=== PATIENT | male | born 1970 | race Caucasian/White ===

== ENCOUNTER → 2016-11-19 | Outpatient (CLI) | payer MEDICARE, OTHER, MEDICAID ==
[~2016-11-19] MED LIST: BUSP10TA23 PO; FLUO-191 PO; GABA-531 PO; MELA3 PO; VITA400C73 PO
== END | disposition home or self-care (01) ==
LOC: RADPV 07:59
PROVIDERS: ATTEND Family Medicine
DX: R76.11 Nonspecific reaction to tuberculin skin test without active tuberculosis (principal)

== ENCOUNTER 2018-02-23 06:12 | Emergency (ER) | payer MEDICARE, OTHER, MEDICAID ==
[~2018-02-23] VITALS: Ht 170.2 cm; Wt 68.1 kg
[~2018-02-23 06:12] MED LIST changes: -MELA3 PO; +MELA3TAB66 PO
[2018-02-23] MEDS ORDERED: BUSP30TA2 PO (06:22)
[2018-02-23] MEDS ORDERED: LORA0.5T2 PO (06:22)
[2018-02-23] MEDS ORDERED: MEMA10TA20 PO (06:22)
[2018-02-23] MEDS ORDERED: LOVA20TA3 PO (06:22)
[2018-02-23] MEDS ORDERED: FLUO-126 PO (06:22)
[2018-02-23] MEDS ORDERED: PERP4TAB10 PO (06:22)
[2018-02-23 06:59] LABS: BASOPHILS % (AUTO) 3.1 % (0.0-2.0); EOSINOPHILS % (AUTO) 2.1 % (1.0-6.0); HEMATOCRIT 43.5 % (41-53); HEMOGLOBIN 15.1 g/dL (13.5-17.5); LYMPHOCYTES # (AUTO) 1.4 K/uL (1.0-4.8); LYMPHOCYTES % (AUTO) 33.7 % (22.0-44.0); MEAN CORPUSCULAR HEMOGLOBIN 32.1 pg (26.0-34.0); MEAN CORPUSCULAR HGB CONC 34.7 G/dL (31.0-37.0); MEAN CORPUSCULAR VOLUME 93 fL (80-100); MONOCYTES # (AUTO) 0.5 K/uL (0.1-1.0); MONOCYTES % (AUTO) 11.6 % (2.0-9.0); NEUTROPHILS # (AUTO) 2.1 K/uL (1.8-7.7); NEUTROPHILS % (AUTO) 49.5 % (40.0-70.0); PLATELET COUNT (AUTO) 256 K/uL (150-450); RED CELL DISTRIBUTION WIDTH 16.3 % (11.5-14.5)
[2018-02-23 07:16] LABS: ANION GAP 4 mmol/L (8-16); CALCIUM, TOTAL 8.7 mg/dL (8.8-10.5); CARBON DIOXIDE 33 mmol/L (22-29); CHLORIDE 103 mmol/L (98-107); CREATININE 1.12 mg/dL (0.60-1.30); GLOMERULAR FILTR. RATE CALC > 60 mL/min (>60); GLUCOSE,RANDOM 102 mg/dL (70-110); POTASSIUM 3.7 mmol/L (3.5-5.1); SODIUM SERUM 140 mmol/L (136-145); UREA NITROGEN, BLOOD 13 mg/dL (7-18)
[2018-02-23 07:20] LABS: ALANINE AMINOTRANSFERASE 27 U/L (12-78); ALBUMIN 3.4 g/dL (3.4-5.0); ALKALINE PHOSPHATASE 54 U/L (46-116); ASPARTATE AMINOTRANSFERASE 26 U/L (15-37); BILIRUBIN,TOTAL 0.7 mg/dL (0.1-1.0); TOTAL PROTEIN, SERUM 7.3 g/dL (6.4-8.2)
[2018-02-23 09:49] LABS: AMPHET/METH SCREEN,URINE NEGATIVE (NEGATIVE); BARBITURATE SCREEN, URINE NEGATIVE (NEGATIVE); BENZODIAZEPINES SCREEN,URINE NEGATIVE (NEGATIVE); CANNABINOID SCREEN,URINE NEGATIVE (NEGATIVE); COCAINE SCREEN,URINE NEGATIVE (NEGATIVE); METHADONE SCREEN, URINE NEGATIVE (NEGATIVE); OPIATE SCREEN,URINE NEGATIVE (NEGATIVE)
[2018-02-23 09:54] LABS: PHENCYCLIDINE SCREEN,URINE NEGATIVE (NEGATIVE)
[2018-02-23 10:04] LABS: APPEARANCE,URINE CLEAR (CLEAR); BILIRUBIN,URINE NEGATIVE (NEGATIVE); GLUCOSE, URINE (UA) NEGATIVE (NEGATIVE); KETONES,URINE NEGATIVE (NEGATIVE); LEUKOCYTE ESTERASE ,URINE NEGATIVE (NEGATIVE); NITRATE,URINE NEGATIVE (NEGATIVE); OCCULT BLOOD,URINE NEGATIVE (NEGATIVE); PROTEIN,URINE NEGATIVE (NEGATIVE); UROBILINOGEN,URINE 0.2 mg/dL (<=1.0)
[2018-02-23 11:01] VITALS: BP 117/64
== END 2018-02-23 11:40 | disposition home or self-care (01) ==
LOC: EMS 06:13
DX: G40.909 Epilepsy, unspecified, not intractable, without status epilepticus (principal); R41.82 Altered mental status, unspecified; E78.00 Pure hypercholesterolemia, unspecified
CPT/HCPCS: 93005; 99285

== ENCOUNTER 2018-02-23 17:09 | Inpatient (IN) | payer MEDICARE, OTHER, MEDICAID ==
[~2018-02-23] VITALS: Ht 165.1 cm; Wt 64.2 kg
[~2018-02-23 17:09] MED LIST changes: +BUSP30TA2 PO; +FLUO-126 PO; +LORA0.5T2 PO; +LOVA20TA3 PO; +MEMA10TA20 PO; +PERP4TAB10 PO
[2018-02-23 18:04] LABS: BASOPHILS % (AUTO) 3.4 % (0.0-2.0); EOSINOPHILS % (AUTO) 0.7 % (1.0-6.0); HEMATOCRIT 43.9 % (41-53); HEMOGLOBIN 15.1 g/dL (13.5-17.5); LYMPHOCYTES # (AUTO) 1.6 K/uL (1.0-4.8); LYMPHOCYTES % (AUTO) 23.4 % (22.0-44.0); MEAN CORPUSCULAR HGB CONC 34.3 G/dL (31.0-37.0); MEAN CORPUSCULAR VOLUME 93 fL (80-100); MONOCYTES # (AUTO) 0.8 K/uL (0.1-1.0); MONOCYTES % (AUTO) 12.1 % (2.0-9.0); NEUTROPHILS # (AUTO) 4.1 K/uL (1.8-7.7); NEUTROPHILS % (AUTO) 60.4 % (40.0-70.0); PLATELET COUNT (AUTO) 291 K/uL (150-450); RED BLOOD CELL COUNT(AUTO) 4.71 MIL/uL (4.50-5.90)
[2018-02-23 18:23] LABS: PROTHROMBIN TIME 10.7 SEC (9.4-11.6)
[2018-02-23 18:28] LABS: ANION GAP 7 mmol/L (8-16); CALCIUM, TOTAL 8.8 mg/dL (8.8-10.5); CARBON DIOXIDE 31 mmol/L (22-29); CHLORIDE 102 mmol/L (98-107); CREATININE 1.19 mg/dL (0.60-1.30); GLOMERULAR FILTR. RATE CALC > 60 mL/min (>60); GLUCOSE,RANDOM 112 mg/dL (70-110); POTASSIUM 3.8 mmol/L (3.5-5.1); SODIUM SERUM 140 mmol/L (136-145); UREA NITROGEN, BLOOD 13 mg/dL (7-18)
[2018-02-23 18:38] LABS: B-TYPE NATRIURETIC PEPTIDE 8 pg/mL (0-100)
[2018-02-23 18:54] LABS: ALANINE AMINOTRANSFERASE 29 U/L (12-78); ALBUMIN 3.6 g/dL (3.4-5.0); ALKALINE PHOSPHATASE 47 U/L (46-116); ASPARTATE AMINOTRANSFERASE 32 U/L (15-37); BILIRUBIN,TOTAL 0.8 mg/dL (0.1-1.0); CREATINE KINASE MB 2.8 ng/mL (0-5); CREATINE KINASE, TOTAL 100 U/L (39-308); TOTAL PROTEIN, SERUM 7.6 g/dL (6.4-8.2)
[2018-02-23 19:15] LABS: APPEARANCE,URINE CLEAR (CLEAR); BILIRUBIN,URINE NEGATIVE (NEGATIVE); GLUCOSE, URINE (UA) NEGATIVE (NEGATIVE); KETONES,URINE NEGATIVE (NEGATIVE); LEUKOCYTE ESTERASE ,URINE NEGATIVE (NEGATIVE); NITRATE,URINE NEGATIVE (NEGATIVE); OCCULT BLOOD,URINE NEGATIVE (NEGATIVE); PROTEIN,URINE NEGATIVE (NEGATIVE); UROBILINOGEN,URINE 0.2 mg/dL (<=1.0)
[2018-02-23 19:21] LABS: AMPHET/METH SCREEN,URINE NEGATIVE (NEGATIVE); BARBITURATE SCREEN, URINE NEGATIVE (NEGATIVE); BENZODIAZEPINES SCREEN,URINE NEGATIVE (NEGATIVE); CANNABINOID SCREEN,URINE NEGATIVE (NEGATIVE); COCAINE SCREEN,URINE NEGATIVE (NEGATIVE); METHADONE SCREEN, URINE NEGATIVE (NEGATIVE); OPIATE SCREEN,URINE NEGATIVE (NEGATIVE)
[2018-02-23 19:23] LABS: PHENCYCLIDINE SCREEN,URINE NEGATIVE (NEGATIVE)
[2018-02-23] MEDS ORDERED: ACETAMINOPHEN 325 MG TABLET PO PRN ×2 (21:00→23:00)
[2018-02-23] MEDS ORDERED: 0.9% SODIUM CHLORIDE 10 ML SYRINGE IVP PRN ×2 (21:00→23:00)
[2018-02-23 22:09] VITALS: BP 123/73
[2018-02-23] MEDS ORDERED: LORazepam 2 MG/ML VIAL IVP PRN (23:00)
[2018-02-23] MEDS ORDERED: ONDANSETRON HCL 4 MG/2 ML VIAL IVP PRN (23:00)
[2018-02-23] MEDS ORDERED: ZOLPIDEM TARTRATE 5 MG TABLET PO PRN (23:00)
[2018-02-23] MEDS: MEMANTINE HCL 10 MG TABLET PO SCH (23:29)
[2018-02-23] MEDS: DOCUSATE SODIUM 100 MG CAPSULE PO SCH (23:30)
[2018-02-23] MEDS: LORazepam 0.5 MG TABLET PO SCH (23:30)
[2018-02-23] MEDS: PERPHENAZINE 2 MG TABLET PO SCH (23:30)
[2018-02-23] MEDS: MELATONIN 3 MG TABLET PO SCH (23:30)
[2018-02-23] MEDS: BusPIRone HCL 15 MG TABLET PO SCH (23:30)
[2018-02-24 00:43] VITALS: BP 114/70
[2018-02-24 03:47] VITALS: BP 119/67
[2018-02-24 07:17] LABS: BASOPHILS % (AUTO) 1.3 % (0.0-2.0); EOSINOPHILS % (AUTO) 0.5 % (1.0-6.0); HEMATOCRIT 42.9 % (41-53); HEMOGLOBIN 14.8 g/dL (13.5-17.5); LYMPHOCYTES # (AUTO) 1.2 K/uL (1.0-4.8); LYMPHOCYTES % (AUTO) 17.2 % (22.0-44.0); MEAN CORPUSCULAR HEMOGLOBIN 32.2 pg (26.0-34.0); MEAN CORPUSCULAR HGB CONC 34.5 G/dL (31.0-37.0); MEAN CORPUSCULAR VOLUME 93 fL (80-100); MONOCYTES # (AUTO) 0.7 K/uL (0.1-1.0); MONOCYTES % (AUTO) 9.8 % (2.0-9.0); NEUTROPHILS % (AUTO) 71.2 % (40.0-70.0); PLATELET COUNT (AUTO) 263 K/uL (150-450); RED BLOOD CELL COUNT(AUTO) 4.59 MIL/uL (4.50-5.90); RED CELL DISTRIBUTION WIDTH 16.8 % (11.5-14.5)
[2018-02-24 07:34] VITALS: BP 113/67
[2018-02-24 07:59] LABS: ALANINE AMINOTRANSFERASE 20 U/L (12-78); ALBUMIN 3.3 g/dL (3.4-5.0); ALKALINE PHOSPHATASE 47 U/L (46-116); ANION GAP 8 mmol/L (8-16); ASPARTATE AMINOTRANSFERASE 24 U/L (15-37); CALCIUM, TOTAL 8.1 mg/dL (8.8-10.5); CARBON DIOXIDE 30 mmol/L (22-29); CHLORIDE 102 mmol/L (98-107); CREATININE 0.96 mg/dL (0.60-1.30); GLOMERULAR FILTR. RATE CALC > 60 mL/min (>60); GLUCOSE,RANDOM 97 mg/dL (70-110); POTASSIUM 3.1 mmol/L (3.5-5.1); SODIUM SERUM 140 mmol/L (136-145); UREA NITROGEN, BLOOD 12 mg/dL (7-18)
[2018-02-24] MEDS: PANTOPRAZOLE SODIUM 40 MG/VIAL IVP SCH (08:29)
[2018-02-24] MEDS: MEMANTINE HCL 10 MG TABLET PO SCH ×2 (08:31→20:43)
[2018-02-24] MEDS: BusPIRone HCL 15 MG TABLET PO SCH ×2 (08:31→20:43)
[2018-02-24] MEDS: DOCUSATE SODIUM 100 MG CAPSULE PO SCH ×2 (08:31→20:43)
[2018-02-24] MEDS: PERPHENAZINE 2 MG TABLET PO SCH ×2 (08:32→20:43)
[2018-02-24] MEDS: FLUoxetine HCL 20 MG CAPSULE PO SCH (08:32)
[2018-02-24 11:48] VITALS: BP 156/97
[2018-02-24 15:23] VITALS: BP 106/58
[2018-02-24] MEDS ORDERED: POTASSIUM CHLORIDE 10% 40 MEQ/30 ML LIQUID UDCUP PO ONE (15:30)
[2018-02-24] MEDS: LOVASTATIN 20 MG TABLET PO SCH (18:28)
[2018-02-24 20:23] VITALS: BP 123/64
[2018-02-24] MEDS: MELATONIN 3 MG TABLET PO SCH (20:43)
[2018-02-24] MEDS: LORazepam 0.5 MG TABLET PO SCH (20:43)
[2018-02-25] VITALS (10 sets, daily range): BP systolic 101–144; BP diastolic 51–83
[2018-02-25] MEDS: DOCUSATE SODIUM 100 MG CAPSULE PO SCH ×2 (08:53→20:06)
[2018-02-25] MEDS: PANTOPRAZOLE SODIUM 40 MG/VIAL IVP SCH (08:53)
[2018-02-25] MEDS: MEMANTINE HCL 10 MG TABLET PO SCH ×2 (08:54→20:05)
[2018-02-25] MEDS: BusPIRone HCL 15 MG TABLET PO SCH ×2 (08:54→20:05)
[2018-02-25] MEDS: PERPHENAZINE 2 MG TABLET PO SCH ×2 (08:55→20:05)
[2018-02-25] MEDS: FLUoxetine HCL 20 MG CAPSULE PO SCH (08:56)
[2018-02-25] MEDS ORDERED: LEVE500T53 PO (16:34)
[2018-02-25] MEDS: LOVASTATIN 20 MG TABLET PO SCH (18:25)
[2018-02-25] MEDS: LevETIRAcetam 500 MG TABLET PO SCH (20:05)
[2018-02-25] MEDS: LORazepam 0.5 MG TABLET PO SCH (20:06)
[2018-02-25] MEDS: MELATONIN 3 MG TABLET PO SCH (20:06)
[2018-02-26 00:28] VITALS: BP 118/68
[2018-02-26 04:52] VITALS: BP 111/81
[2018-02-26 07:30] VITALS: BP 110/67
[2018-02-26] MEDS: PERPHENAZINE 2 MG TABLET PO SCH (08:35)
[2018-02-26] MEDS: FLUoxetine HCL 20 MG CAPSULE PO SCH (08:35)
[2018-02-26] MEDS: LevETIRAcetam 500 MG TABLET PO SCH (08:35)
[2018-02-26] MEDS: MEMANTINE HCL 10 MG TABLET PO SCH (08:35)
[2018-02-26] MEDS: PANTOPRAZOLE SODIUM 40 MG/VIAL IVP SCH (08:35)
[2018-02-26] MEDS: BusPIRone HCL 15 MG TABLET PO SCH (08:35)
[2018-02-26] MEDS: DOCUSATE SODIUM 100 MG CAPSULE PO SCH (09:00)
[2018-02-26 11:25] VITALS: BP 114/70
== END 2018-02-26 12:10 | DRG 101 ==
LOC: EMS 17:10 → 5S 21:25
PROVIDERS: ADMIT Internal Medicine; ATTEND Internal Medicine
PROC: 0HQ0XZZ Repair Scalp Skin, External Approach (ICD-10-PCS; principal; 2018-02-23)
DX: G40.89 Other seizures (principal); E78.00 Pure hypercholesterolemia, unspecified; W07.XXXA Fall from chair, initial encounter; Q90.9 Down syndrome, unspecified; S01.81XA Laceration without foreign body of other part of head, initial encounter; E78.5 Hyperlipidemia, unspecified; Z79.899 Other long term (current) drug therapy; Y92.89 Other specified places as the place of occurrence of the external cause; Y99.8 Other external cause status; Y93.89 Activity, other specified
CPT/HCPCS: 12011; 70450; 83735; 84132; 93005; 99285; C9113; G0480

== ENCOUNTER 2018-06-29 21:10 | Emergency (ER) | payer MEDICARE, OTHER, MEDICAID ==
[~2018-06-29] VITALS: Ht 157.5 cm; Wt 75.0 kg
[~2018-06-29 21:10] MED LIST changes: -BUSP10TA23 PO; -FLUO-191 PO; -GABA-531 PO; +LEVE500T53 PO; -VITA400C73 PO
[2018-06-29] MEDS ORDERED: TEMA15CA PO (21:38)
[2018-06-29] MEDS ORDERED: MEMA10TA11 PO (21:38)
[2018-06-29] MEDS ORDERED: FLUO-191 PO (21:38)
[2018-06-29 21:52] LABS: BASOPHILS % (AUTO) 1.3 % (0.0-2.0); HEMATOCRIT 41.1 % (41-53); HEMOGLOBIN 14.1 g/dL (13.5-17.5); LYMPHOCYTES # (AUTO) 1.4 K/uL (1.0-4.8); MEAN CORPUSCULAR HEMOGLOBIN 32.6 pg (26.0-34.0); MEAN CORPUSCULAR HGB CONC 34.2 G/dL (31.0-37.0); MEAN CORPUSCULAR VOLUME 95 fL (80-100); MONOCYTES # (AUTO) 0.6 K/uL (0.1-1.0); NEUTROPHILS # (AUTO) 4.6 K/uL (1.8-7.7); NEUTROPHILS % (AUTO) 66.7 % (40.0-70.0); PLATELET COUNT (AUTO) 304 K/uL (150-450); RED BLOOD CELL COUNT(AUTO) 4.32 MIL/uL (4.50-5.90); RED CELL DISTRIBUTION WIDTH 14.8 % (11.5-14.5)
[2018-06-29 22:04] LABS: ANION GAP 7 mmol/L (8-16); CALCIUM, TOTAL 8.4 mg/dL (8.8-10.5); CARBON DIOXIDE 30 mmol/L (22-29); CHLORIDE 103 mmol/L (98-107); CREATININE 1.13 mg/dL (0.60-1.30); GLOMERULAR FILTR. RATE CALC > 60 mL/min (>60); GLUCOSE,RANDOM 130 mg/dL (70-110); POTASSIUM 3.8 mmol/L (3.5-5.1); SODIUM SERUM 140 mmol/L (136-145); UREA NITROGEN, BLOOD 18 mg/dL (7-18)
[2018-06-29 22:10] LABS: ALANINE AMINOTRANSFERASE 51 U/L (12-78); ALBUMIN 3.3 g/dL (3.4-5.0); ALKALINE PHOSPHATASE 65 U/L (46-116); ASPARTATE AMINOTRANSFERASE 35 U/L (15-37); BILIRUBIN,TOTAL 0.5 mg/dL (0.1-1.0); TOTAL PROTEIN, SERUM 6.9 g/dL (6.4-8.2)
[2018-06-29] MEDS ORDERED: KETOROLAC TROMETHAMINE 30 MG/ML VIAL IM ONE (22:30)
[2018-06-29] MEDS ORDERED: LORazepam 1 MG TABLET PO ONE (22:30)
[2018-06-29 22:55] LABS: LIPASE 175 U/L (73-393)
[2018-06-30 03:13] VITALS: BP 107/65
[2018-06-30] MEDS ORDERED: LORazepam 1 MG TABLET PO ONE (03:45)
== END 2018-06-30 03:56 | disposition home or self-care (01) ==
LOC: EMS 21:12
DX: R10.9 Unspecified abdominal pain (principal); E78.00 Pure hypercholesterolemia, unspecified; E56.9 Vitamin deficiency, unspecified; Q90.9 Down syndrome, unspecified; Z88.8 Allergy status to other drugs, medicaments and biological substances; Z79.899 Other long term (current) drug therapy
CPT/HCPCS: 36415; 80053; 83690; 85025; 96372; 99284; G0480; J1885

== ENCOUNTER 2018-08-30 21:29 | Emergency (ER) | payer MEDICARE, OTHER, MEDICAID ==
[~2018-08-30] VITALS: Ht 154.9 cm; Wt 68.2 kg
[~2018-08-30 21:29] MED LIST changes: -FLUO-126 PO; +FLUO-191 PO; -LORA0.5T2 PO; +MEMA10TA11 PO; -MEMA10TA20 PO; -PERP4TAB10 PO; +TEMA15CA PO
[2018-08-30] MEDS ORDERED: IBUP100T53 PO (21:52)
[2018-08-30] MEDS ORDERED: RISP.5 PO (21:52)
[2018-08-30] MEDS ORDERED: ALPR0.5T8 PO (21:52)
[2018-08-30 21:55] LABS: HEMATOCRIT 40.1 % (41-53); HEMOGLOBIN 13.9 g/dL (13.5-17.5); MEAN CORPUSCULAR HEMOGLOBIN 32.9 pg (26.0-34.0); MEAN CORPUSCULAR HGB CONC 34.6 G/dL (31.0-37.0); MEAN CORPUSCULAR VOLUME 95 fL (80-100); PLATELET COUNT (AUTO) 358 K/uL (150-450); RED BLOOD CELL COUNT(AUTO) 4.23 MIL/uL (4.50-5.90); RED CELL DISTRIBUTION WIDTH 15.5 % (11.5-14.5)
[2018-08-30] MEDS ORDERED: HALOPERIDOL LACTATE 5 MG/ML VIAL IM ONE (22:00)
[2018-08-30] MEDS ORDERED: LORazepam 2 MG/ML VIAL IM ONE (22:00)
[2018-08-30 22:09] LABS: ANION GAP 8 mmol/L (8-16); CALCIUM, TOTAL 8.5 mg/dL (8.8-10.5); CARBON DIOXIDE 32 mmol/L (22-29); CHLORIDE 103 mmol/L (98-107); CREATININE 1.02 mg/dL (0.60-1.30); GLOMERULAR FILTR. RATE CALC > 60 mL/min (>60); GLUCOSE,RANDOM 122 mg/dL (70-110); POTASSIUM 4.2 mmol/L (3.5-5.1); SODIUM SERUM 143 mmol/L (136-145); UREA NITROGEN, BLOOD 16 mg/dL (7-18)
[2018-08-30 22:16] LABS: ALANINE AMINOTRANSFERASE 30 U/L (12-78); ALBUMIN 3.2 g/dL (3.4-5.0); ALKALINE PHOSPHATASE 56 U/L (46-116); ASPARTATE AMINOTRANSFERASE 25 U/L (15-37); BILIRUBIN,TOTAL 0.5 mg/dL (0.1-1.0); TOTAL PROTEIN, SERUM 7.5 g/dL (6.4-8.2)
[2018-08-30 22:41] LABS: BAND NEUTROPHILS % (MANUAL) 4 % (0-5); BASOPHILS % (MANUAL) 2 % (0-2); EOSINOPHILS % (MANUAL) 3 % (1-6); LYMPHOCYTES % (MANUAL) 21 % (22-44); MONOCYTES % (MANUAL) 11 % (2-9); MYELOCYTES % 3 % (0-0); SEGMENTED NEUTROPHILS % 56 % (40-70)
[2018-08-30 22:59] VITALS: BP 110/75
== END 2018-08-30 23:35 | disposition home or self-care (01) ==
LOC: EMS 21:31
DX: S00.83XA Contusion of other part of head, initial encounter (principal); F98.9 Unspecified behavioral and emotional disorders with onset usually occurring in childhood and adolescence; Q90.9 Down syndrome, unspecified; E78.00 Pure hypercholesterolemia, unspecified; X58.XXXA Exposure to other specified factors, initial encounter; Y93.89 Activity, other specified; Y92.89 Other specified places as the place of occurrence of the external cause; Y99.8 Other external cause status
CPT/HCPCS: 36415; 80053; 84484; 85025; 96372; 99283; J1630; J2060

== ENCOUNTER 2018-09-25 14:20 | Emergency (ER) | payer MEDICARE, OTHER, MEDICAID ==
[~2018-09-25] VITALS: Ht 165.1 cm; Wt 81.8 kg
[~2018-09-25 14:20] MED LIST changes: +ALPR0.5T8 PO; -FLUO-191 PO; +IBUP100T53 PO; +RISP.5 PO; -TEMA15CA PO
[2018-09-25] MEDS ORDERED: LIDOCAINE 1%/EPI 1:200,000/PF 10 ML VIAL INJ ONE (16:00)
[2018-09-25 18:21] VITALS: BP 130/82
== END 2018-09-25 18:33 | disposition home or self-care (01) ==
LOC: EMS 14:29
DX: S01.511A Laceration without foreign body of lip, initial encounter (principal); E78.00 Pure hypercholesterolemia, unspecified; W18.39XA Other fall on same level, initial encounter; Y93.89 Activity, other specified; Y92.89 Other specified places as the place of occurrence of the external cause; Y99.8 Other external cause status
CPT/HCPCS: 70450; 72125; 99284; J3490

== ENCOUNTER 2018-10-27 03:42 | Emergency (ER) | payer MEDICARE, OTHER, MEDICAID ==
[~2018-10-27] VITALS: Ht 167.6 cm; Wt 77.3 kg
[2018-10-27 03:58] VITALS: BP 110/74
[2018-10-27] MEDS ORDERED: ZIPR20I IM (04:06)
== END 2018-10-27 05:08 | disposition home or self-care (01) ==
LOC: EMS 03:42
DX: F91.8 Other conduct disorders (principal); Q90.9 Down syndrome, unspecified; G40.909 Epilepsy, unspecified, not intractable, without status epilepticus; E78.00 Pure hypercholesterolemia, unspecified; Z79.899 Other long term (current) drug therapy